=== PATIENT | male | born 1960 | race Caucasian/White ===

== ENCOUNTER 2019-07-12 11:19 | Emergency (ER) | payer OTHER, SELFPAY ==
[2019-07-12 11:29] VITALS: BP 112/71; PULSE 84; RESP 17; TEMP 36.7; O2SAT 97; BMI 24.1
--- NOTE | 2019-07-12 11:32 | XR_ITS ---
PROCEDURE: XR HAND LT MIN 3V CLINICAL INDICATION: left hand injury Posttraumatic pain COMPARISON: No exams were available for comparison FINDINGS: No fracture or dislocation. No lytic or blastic change. There is normal mineralization. The joint spaces are well-preserved. No significant degenerative/arthritic changes. No erosive changes evident. Other findings:None. IMPRESSION: No acute findings. Dictated by: Mt Collins MD 07/12/2019 12:07 Electronically signed by Mt Collins MD in [place] 07/12/2019 12:07
--- NOTE | 2019-07-12 11:44 | HMH.EDGENADL ---
ED Disposition Clinical Impression: Laceration of left ring finger Qualifiers: Encounter type: initial encounter Damage to nail status: without damage Foreign body presence: without foreign body Qualified Code(s): S61.215A - Laceration without foreign body of left ring finger without damage to nail, initial encounter Disposition: Home, Self-Care Condition on Discharge: Good Instructions: DI for Laceration Repair Additional Instructions: Additional instructions for HAND LACERATION: Clean the wound daily with soap and water. Avoid submerging the wound. No swimming.DO NOT USE any antibiotic ointment such as Neosporin, Polysporin, or triple antibiotic. This will delay healing. Apply dry bandage and splint daily. See your primary care physician or return to the [facility] in 10 days for suture removal. The [facility] is open 1 PM to 8 PM 7 days a week. Return if any signs of infection including increasing pain, pus drainage, swelling, redness, red streaks, or fever. Referrals: Zahra Samson [Primary Care Provider] - - Critical Care Critical Care Time: No Attestation: On 07/12/19, the high probability of a clinically significant, sudden or life threatening deterioration of the following system(s) required my full and direct attention, intervention and personal management. The time I documented below is in addition to time spent performing reported procedures but includes the following listed in this critical care notation. Medical Decision Making - Vipin Inquiry Pt receiving controlled substance: No Vital Signs: 07/12/19 11:29 Temperature 98.1 F Temperature Source Oral Pulse Rate [Right Radial] 84 Respiratory Rate 17 Blood Pressure [Right Arm] 112/71 Blood Pressure Mean [Right Arm] 84 02 Sat by Pulse Oximetry 97 Oxygen Delivery Method Room Air Orders (Tests/Meds): ED MEDICATIONS Discontinued Medications Generic Name Dose Route Start Last Admin Trade Name Freq PRN Reason Stop Dose Admin Lidocaine HCl 20 ml 07/12/19 11:52 Lidocaine 2% 20ml Vial IJ 07/12/19 11:53 ONCE ONE Tetanus/Reduced Diphtheria/Acell Pertussis 0.5 ml 07/12/19 11:33 Adacel Tdap 0.5ml Syringe IM 07/12/19 11:34 .ONCE ONE - Radiology Data #1 Image(s): Hand Image Reviewed: Yes I reviewed the patient's radiology image, Yes I have reviewed radiologist's interpretation PROCEDURE: XR HAND LT MIN 3V CLINICAL INDICATION: left hand injury Posttraumatic pain COMPARISON: No exams were available for comparison FINDINGS: No fracture or dislocation. No lytic or blastic change. There is normal mineralization. The joint spaces are well-preserved. No significant degenerative/arthritic changes. No erosive changes evident. Other findings:None. IMPRESSION: No acute findings. Dictated by: Mt Collins MD 07/12/2019 12:07 Electronically signed by Mt Collins MD in [place] 07/12/2019 12:07 General Adult HPI - General Chief complaint: Skin/Abscess/Foreign Body Stated complaint: AO [id number] left ring finger, home Time Seen by Provider: 07/12/19 11:44 Mode of Arrival: Ambulatory Limitations: No Limitations Description of Symptoms (Recalled from ER Triage Doc. by RN): pt smashed left ring finger while lifting a heavy object out of his truck bed. - History of Present Illness HPI narrative: The patient smashed his left ring finger while getting an auger out of a truck today. Sustained lacerations to the finger. Last tetanus immunization is unknown. - Related Data Allergies Allergy/AdvReac Type Severity Reaction Status Date / Time No Known Allergies Allergy Verified 07/12/19 11:32 [facility] History - Hepatitis A Screen Drug use history?: No High risk sexual behaviors?: No History of sexually transmitted infection?: No Currently employed?: No Childcare worker?: No Do you have indoor plumbing?: Yes Do you have electricity?: Yes Attestation statement:: This
[2019-07-12 12:43] VITALS: BP 127/86; PULSE 74; RESP 18; TEMP 36.8; O2SAT 98
== END 2019-07-12 12:53 | disposition home or self-care (01) ==
PROVIDERS: Emergency Provider Emergency Medicine; PCP Family Medicine
DX: S61.315A Laceration without foreign body of left ring finger with damage to nail, initial encounter (principal); W23.0XXA Caught, crushed, jammed, or pinched between moving objects, initial encounter; Y92.89 Other specified places as the place of occurrence of the external cause; Z23 Encounter for immunization
CPT/HCPCS: 11760; 73130; 90471; 90715; 96372; 99282

== ENCOUNTER 2021-03-27 20:07 | Emergency (ER) | payer OTHER, SELFPAY ==
[2021-03-27 20:10] VITALS: BP 142/88; PULSE 86; RESP 17; TEMP 36.6; O2SAT 99; BMI 25.0
--- NOTE | 2021-03-27 21:06 | HMH.EDWNDL ---
ED Disposition Clinical Impression: Facial laceration Qualifiers: Encounter type: initial encounter Qualified Code(s): S01.81XA - Laceration without foreign body of other part of head, initial encounter Disposition: Home, Self-Care Condition on Discharge: Good Instructions: DI for Laceration Repair Additional Instructions: call derm in am to arrange close follow up as may require plastic type repair Referrals: Zahra Samson [Primary Care Provider] - - Critical Care Critical Care Time: No Attestation: On 03/27/21, the high probability of a clinically significant, sudden or life threatening deterioration of the following system(s) required my full and direct attention, intervention and personal management. The time I documented below is in addition to time spent performing reported procedures but includes the following listed in this critical care notation. Medical Decision Making - Medical Records Medical records reviewed: Yes: I reviewed the patient's medical records. - Vipin Inquiry Pt receiving controlled substance: No Vital Signs: 03/27/21 20:10 Temperature 97.8 F Temperature Source Oral Pulse Rate [Right] 86 Respiratory Rate 17 Blood Pressure [Right Arm] 142/88 H Blood Pressure Mean [Right Arm] 106 Blood Pressure Source [Right Arm] Automatic Cuff 02 Sat by Pulse Oximetry 99 Oxygen Delivery Method Room Air Medical Decision Narrative: discussed with pt will need closure but may not be as good as primary - pt understood Wound/Laceration HPI - General Chief Complaint: Wound/Laceration Stated Complaint: AO 0105 stitches broke loose bleed Time Seen by Provider: 03/27/21 20:30 Mode of Arrival: Family Vehicle Source of Information: Patient, Medical Record Limitations: No Limitations Description of Symptoms (Recalled from ER Triage Doc. by RN): Pt concerned he may need stitches to his upper cheek near L eye. 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 While he was shaving his cheek the area opened up. Pt is UTD on his tetanus. - History of Present Illness HPI narrative: recent removal of facial cancer and sutures erupted tonight - has been about 10-12 days ago - Onset (ago): hour(s) Location: face Place: home Patient tetanus UTD: Yes Context: other (recent derm procedure ) Associated symptoms: none - Related Data Allergies Allergy/AdvReac Type Severity Reaction Status Date / Time No Known Allergies Allergy Verified 07/12/19 11:32 [facility] History - Hepatitis A Screen Drug use history?: No High risk sexual behaviors?: No History of sexually transmitted infection?: No Currently employed?: No Childcare worker?: No Do you have indoor plumbing?: Yes Do you have electricity?: Yes Attestation statement:: This patient has been screened for Hepatitis A risk factors. I have reviewed the patient's past medical history: Yes ROS Obtained: Yes All systems reviewed & no additional complaints - Constitutional Constitutional: Denies fever(s) - Eyes Eyes: Denies change in vision - ENT Ears, Nose, Mouth, and Throat: Denies sore throat - Cardiovascular Cardiovascular: Denies chest pain - Respiratory Respiratory: Denies shortness of breath - Gastrointestinal Gastrointestingal: Denies: abdominal pain - Genitourinary Male Genitourinary: Denies hematuria - Musculoskeletal Musculoskeletal: Denies joint pain - Integumentary/Breasts Skin/Breast: Reports as per HPI, Reports other (has about 1.5 open surg site ) - Neurologic Neurologic: Denies focal weakness, Denies seizure-like activity Physical Exam - General General appearance: alert - Head Head exam: normocephalic - Eye Eye exam: Present: PERRL, EOMI - ENT ENT exam: Present: mucous membranes moist - Neck Neck exam: Present: trachea midline - Respiratory Respiratory exam: Absent: respiratory distress - Cardiovascular Cardiovascular exam: Pr
[2021-03-27 21:24] VITALS: BP 140/89; PULSE 72; RESP 16; TEMP 36.9; O2SAT 97
== END 2021-03-27 21:31 | disposition home or self-care (01) ==
PROVIDERS: Emergency Provider Emergency Medicine; PCP Family Medicine
DX: S01.81XA Laceration without foreign body of other part of head, initial encounter (principal); T81.31XA Disruption of external operation (surgical) wound, not elsewhere classified, initial encounter
CPT/HCPCS: 12011; 99282

== ENCOUNTER 2021-11-30 13:27 | Emergency (ER) | payer OTHER, SELFPAY ==
[2021-11-30 13:28] VITALS: BP 118/64; PULSE 72; RESP 18; TEMP 36.6; O2SAT 97; BMI 25.0
--- NOTE | 2021-11-30 13:30 | CT_ITS ---
PROCEDURE INFORMATION: Exam: CT Abdomen And Pelvis With Contrast Exam date and time: 11/30/2021 2:04 PM Age: 61 years old Clinical indication: Abdominal pain; Localized; Right lower quadrant (rlq); Additional info: Right groin pain, hernia TECHNIQUE: Imaging protocol: Computed tomography of the abdomen and pelvis with contrast. Radiation optimization: All CT scans at this facility use at least one of these dose optimization techniques: automated exposure control; mA and/or kV adjustment per patient size (includes targeted exams where dose is matched to clinical indication); or iterative reconstruction. Contrast material: ISOVUE; Contrast volume: 75 ml; Contrast route: IV; COMPARISON: No relevant prior studies available. FINDINGS: Liver: Normal. No mass. Gallbladder and bile ducts: Normal. No calcified stones. No ductal dilation. Pancreas: Normal. No ductal dilation. Spleen: Normal. No splenomegaly. Adrenal glands: Normal. No mass. Kidneys and ureters: 2.5 cm simple cyst posterior right kidney . No follow-up imaging recommended . Stomach and bowel: Unremarkable. No obstruction. No mucosal thickening. Appendix: Normal appendix Intraperitoneal space: Unremarkable. No free air. No significant fluid collection. Vasculature: Unremarkable. No abdominal aortic aneurysm. Lymph nodes: Unremarkable. No enlarged lymph nodes. Urinary bladder: Unremarkable as visualized. Reproductive: Unremarkable as visualized. Bones/joints: Unremarkable. No acute fracture. Soft tissues: Unremarkable. IMPRESSION: No acute process COMMENTS: Consistent with the [employer]'s Incidental Findings Committee white paper (J Am Yeimy [employer]iol 2018): Any incidental renal lesion less than 1 cm or classified as too small to characterize, or any incidental cystic renal lesion characterized as simple-appearing, is likely benign. No follow-up imaging is recommended for these lesions per consensus recommendations based on imaging criteria.
--- NOTE | 2021-11-30 13:37 | HMH.EDGENADL ---
Discharge Plan Disposition Patient Disposition: Home, Self-Care Condition: Good Prescriptions Prescriptions: No Action esomeprazole magnesium 40 MG capsule,delayed release(DR/EC) 40 mg PO DAILY gabapentin 300 MG capsule 300 mg PO TID Referrals Follow up/Referrals: Huseyin Simons MD [Staff Physician] - See instructions (Right inguinal hernia) Zahra Samson [Primary Care Provider] - See instructions Activity Restrictions/Add. Instructions Additional Instructions/Restrictions: You have been evaluated for right groin pain, likely due to inguinal hernia. Please take Tylenol and ibuprofen for pain. Follow-up with your primary care doctor at the [facility]. You may need to see a general surgeon to discuss hernia repair. Return to the emergency department at once for any new or worsening symptoms, uncontrolled pain, vomiting, changes in bowel habits, any other concerns. Clinical Impressions Clinical Impression: Inguinal hernia of right side without obstruction or gangrene Instructions Patient Instructions: DI for Groin Hernia Discharge ED Provider: Virginia Raymond Adult HPI General Chief complaint: PAIN Stated complaint: hernia pain Time Seen by Provider: 11/30/21 13:37 Mode of Arrival: Ambulatory Source of Information: Patient Limitations: No Limitations History of Present Illness HPI narrative: 61-year-old male presenting to the emergency department with right groin pain. Symptoms started about 1 to 2 weeks ago. He had occasional sharp, pulling pain located in his right groin, radiating toward his testicle. Last night and this morning the pain was much worse. He had multiple coughing fits. After that the pain was sharp and intense. Does not radiate. No changes in bowel habits, had a normal bowel movement this morning. No hematuria, dysuria, history of kidney stones. He follows at the [facility]. Was told by his PCP that he might have a hernia. He has not had prior abdominal surgeries. No medications prior to arrival. No nausea, vomiting, fevers, chills Related Data Home Medications Medication Instructions Recorded Confirmed esomeprazole magnesium 40 mg 40 mg PO DAILY GERD 03/27/21 03/27/21 capsule,delayed release gabapentin 300 mg capsule 300 mg PO TID back pain 03/27/21 03/27/21 Allergies Allergy/AdvReac Type Severity Reaction Status Date / Time No Known Allergies Allergy Verified 07/12/19 11:32 PFSH PFSH Social History Smoking Status: Former smoker alcohol intake: never current occupational status: employed Travel in the last 8 weeks: None ROS Obtained: Yes All systems reviewed & no additional complaints except as documented Constitutional Constitutional: Denies anorexia, Denies chills, Denies fatigue and Denies fever(s) ENT Ears, Nose, Mouth, and Throat: Denies neck pain Cardiovascular Cardiovascular: Denies chest pain and Denies palpitations Respiratory Respiratory: Denies shortness of breath and Denies cough Gastrointestinal Gastrointestingal: Reports abdominal pain; Denies constipation, diarrhea or vomiting Genitourinary Male Genitourinary: Denies difficulty urinating, Reports genital pain, Denies hematuria and Reports testicular pain Musculoskeletal Musculoskeletal: Denies back pain and Denies neck pain Endocrine Endocrine: Denies fatigue and Denies palpitations Physical Exam General General appearance: alert and in no apparent distress Head Head exam: atraumatic and normocephalic ENT ENT exam: Present normal exam and mucous membranes moist Respiratory Respiratory exam: Present normal lung sounds bilaterally; Absent respiratory distress or wheezes Cardiovascular Cardiovascular exam: Present regular rate and normal rhythm Abdominal Exam Abdominal exam: Present soft and tenderness (right lower abdomen. no palpable inguinal hernia defect or buldge.); Absent distention, guarding or rebound exam: Present normal inspection and normal testicular lie; Absen
[2021-11-30 13:55] LABS: Chloride 106 mmol/L (98-107); Potassium 4.2 mmoL/L (3.5-5.1); Sodium 142 mmol/L (136-145)
[2021-11-30 13:57] LABS: Blood Urea Nitrogen 18 mg/dl (9-20); Creatinine Clearance Estimated 85 mL/min (50-200); Estimated Glomerular Filt Rate 86 ml/min (>60); GFR (African American) 105 ML/MIN (>60)
[2021-11-30 13:58] LABS: Alanine Aminotransferase 22 U/L (12-78); Albumin Level 4.7 g/dl (3.5-5.0); Albumin/Globulin Ratio 1.5 (1.1-1.8); Alkaline Phosphatase 88 U/L (38-126); Anion Gap 13.2 mEq/L (5-15); Aspartate Amino Transferase 32 U/L (17-59); Bilirubin,Total 0.3 mg/dl (0.2-1.3); Calcium 8.4 mg/dl (8.4-10.2); Carbon Dioxide 27 mmol/L (22.0-30.0); Globulin 3.2 g/dL (1.3-3.2); Glucose 106 mg/dl (74-100); Total Protein,Serum 7.9 g/dl (6.3-8.2)
[2021-11-30 14:00] VITALS: BP 126/79; PULSE 64; O2SAT 99
[2021-11-30 14:03] LABS: Basophils # 0.1 K/mm3 (0-0.2); Basophils % 1.3 % (0.1-2.0); Eosinophils # 0.1 K/mm3 (0.0-0.4); Eosinophils % 1.6 % (0.1-12.0); Hematocrit 44.4 % (42.0-52.0); Hemoglobin 14.6 g/dL (14.1-18.0); Lymphocytes # 1.6 K/mm3 (0.7-4.5); Lymphocytes % 19.6 % (10-50); Mean Corpuscular HGB Conc 32.9 g/dL (31.8-35.4); Mean Corpuscular Hemoglobin 30.5 pg (27.0-31.2); Mean Corpuscular Volume 92.7 fl (80-94); Mean Platelet Volume 7.4 fl (7.4-10.4); Monocytes # 0.6 K/mm3 (0.1-1.0); Monocytes % 6.6 % (1.7-9.3); Neutrophils # 5.9 K/mm3 (1.8-7.8); Neutrophils % 70.9 % (37.0-80.0); Platelet Count 394 K/mm3 (142-424); Red Blood Count 4.79 M/mm3 (4.60-6.20); Red Cell Distribution Width 12.6 % (11.5-17.5); White Blood Count 8.3 K/mm3 (4.8-10.8)
--- NOTE | 2021-11-30 14:07 | PC.NURSE ---
PT GOING TO CT VIA W/C
[2021-11-30 14:30] VITALS: BP 130/78; PULSE 64; RESP 16; O2SAT 99
[2021-11-30 15:35] VITALS: BP 140/79; PULSE 64; RESP 18; TEMP 36.8; O2SAT 99
== END 2021-11-30 15:38 | disposition home or self-care (01) ==
PROVIDERS: Emergency Provider Emergency Medicine; PCP Family Medicine
DX: K40.90 Unilateral inguinal hernia, without obstruction or gangrene, not specified as recurrent (principal)
CPT/HCPCS: 74177; 80053; 85025; 96374; 96375; 99284; J2405; Q9967